=== PATIENT | male | born 1990 | race Two or more races ===

== ENCOUNTER 2021-09-02 09:00 | Emergency (ER) | payer MEDICAID, OTHER ==
[~2021-09-02] VITALS: Ht 172.7 cm; Wt 104.3 kg
[2021-09-02 10:06] LABS: Basophils # (auto) 0 10 ^3/uL (0-0.2); Basophils % (auto) 0.5 % (0.0-2.0); Eosinophils # (auto) 0 10 ^3/uL (0-0.8); Eosinophils % (auto) 0.1 % (0.0-7.0); Hematocrit 42.6 % (41.0-53.0); Hemoglobin 14.7 g/dL (13.5-17.5); Lymphocytes # (auto) 1.5 10 ^3/uL (0.4-5.4); Lymphocytes % (auto) 19.1 % (10.0-50.0); Mean Corpuscular Hgb Conc. 34.6 g/dL (32.0-36.0); Mean Corpuscular Volume 86.6 fL (80.0-100.0); Monocytes # (auto) 0.5 10 ^3/uL (0-1.3); Monocytes % (auto) 6.5 % (0.0-12.0); Neutrophils # (auto) 5.8 10 ^3/uL (1.6-8.6); Neutrophils % (auto) 73.8 % (37.0-80.0); Red Blood Cells 4.91 10^6/uL (4.5-5.90); Red Cell Distribution Width 12.5 % (11.8-14.3); White Blood Cell 7.9 10^3/uL (4.4-10.8)
[2021-09-02 10:22] LABS: Potassium 3.4 mmol/L (3.5-5.1)
[2021-09-02 10:30] LABS: Albumin 4.1 g/dL (3.4-5.0); BUN/Creatinine Ratio 11.5; Bilirubin, Total 0.8 mg/dL (0.2-1.0); Calcium 8.8 mg/dL (8.5-10.1)
[2021-09-02 11:18] LABS: Acetaminophen 6.6 ug/mL (10-30); Salicylate < 1.7 mg/dL (2.8-20.0)
[2021-09-02 11:22] LABS: Alcohol, Urine < 3.0 mg/dL (0-10); Amphetamine Screen, Urine NEGATIVE (NEGATIVE); Barbiturate Scree,Urine NEGATIVE (NEGATIVE); Benzodiazephine Screen, Urine NEGATIVE (NEGATIVE); Cannabinoid Screen, Urine POSITIVE (NEGATIVE); Cocaine Screen, Urine NEGATIVE (NEGATIVE); Opiate Scree,Urine NEGATIVE (NEGATIVE); Phencyclidine Screen, Urine NEGATIVE (NEGATIVE)
[2021-09-02] MEDS ORDERED: PANTOPRAZOLE 40 MG TAB PO ONE (16:15)
[2021-09-02 19:30] VITALS: BP 138/87
== END 2021-09-03 04:04 | disposition home or self-care (01) ==
LOC: EDBD 09:00 → ER 09:00
DX: K29.70 Gastritis, unspecified, without bleeding (principal); E87.6 Hypokalemia; F41.9 Anxiety disorder, unspecified; R74.8 Abnormal levels of other serum enzymes; F12.10 Cannabis abuse, uncomplicated; Z20.822 Contact with and (suspected) exposure to COVID-19
CPT/HCPCS: 36415; 80053; 80307; 80329; 85025

== ENCOUNTER 2024-06-08 21:21 | Emergency (ER) | payer MEDICAID ==
[~2024-06-08] VITALS: Ht 170.2 cm; Wt 88.4 kg
[2024-06-08 21:35] VITALS: BP 125/81; RESP 16; O2SAT 95
[2024-06-08 21:52] VITALS: PULSE 88
--- NOTE | 2024-06-08 21:52 | ED.PDOC ---
History of Present Illness HPI Comments 33-year-old male, history of marijuana use and homelessness, is brought in by ambulance for complaint of shortness a breath and anxiety, today. Per EMS report, patient was at a local crisis center, endorsing of symptoms after he was refused a place to reside upon inquiry, earlier, this evening. He was noted to up and found with all vitals stable and within normal limits, lungs clear, and no endorsement of any significant past medical or surgical history. Upon arrival to ED at time of initial contact, patient reports on feeling anxious, lately, due to recent homelessness after having some on unspecified domestic issues with his previous place of residence at a assisted facility. He denies having any chest pain, cough, congestion, fever, chills, or other associated symptoms or modifiers at this time. Chief Complaint: Shortness of Breath Time Seen by MD: 21:35 Primary Care Provider: NONE Reviewed Notes: Nurses Notes, Flexo Operator Notes, Medications, Allergies Allergies: Coded Allergies: NO KNOWN ALLERGIES (Unverified , 09/02/21) Information Source: Patient, Emergency Med Personnel Mode of Arrival: EMS Past Medical History Past Medical History (Other): ADHD, gastritis Surgical History: Denies all surgeries Family History Family History: Unknown Social History Smoker: Non-Smoker Alcohol: Denies ETOH Use Drugs: Marijuana Lives In: Homeless All Other Systems: Reviewed and Negative (Comprehensive systems review obtained and negative except for what is stated in the HPI.) Physical Exam General Appearance: No Apparent Distress, Obese HEENT: Normal ENT Inspection, Pharynx Normal, TMs Normal Neck: Full Range of Motion, Non-Tender, Normal, Normal Inspection Respiratory: Chest Non-Tender, Lungs Clear, No Accessory Muscle Use, No Respir atory Distress, Normal Breath Sounds Cardiovascular: No Edema, No JVD, No Murmur, No Gallop, Normal Peripheral Pulses, Regular Rate/Rhythm Breast Exam: Deferred Gastrointestinal: No Organomegaly, Non Tender, No Pulsatile Mass, Normal Bowel Sounds, Soft Genitalia: Deferred Pelvic: Deferred Rectal: Deferred Extremities: No calf tenderness, Normal capillary refill, Normal inspection, Normal range of motion, Non-tender, No pedal edema Musculoskeletal : Apperance: Normal Neurologic: Alert, e learning coordinator II-XII nml as Tested, No Motor Deficits, Normal Affect, Normal Mood, No Sensory Deficits Cerebellar Function: Normal Reflexes: Normal Skin: Dry, Normal Color, Warm Lymphatic: No Adenopathy Was a procedure done? Was a procedure done?: No EKG EKG : Pulse Rate (adult): 88 [place]: Normal Cardiac Rhythm: NSR Block: None Hypertrophy: None ST: Normal Differential Dx Considerations may include: Anxiety, panic attack, homelessness, substance abuse, pneumonia, URI, viral syndrome, among other X-Ray, Labs, Meds, VS Vital Signs Date Time Temp Pulse Resp B/P (MAP) Pulse Ox O2 Delivery O2 Flow Rate FiO2 06/08/24 21:52 88 06/08/24 21:35 97.7 79 16 125/81 (96) 95 06/08/24 21:23 88 X-Ray, Labs, Meds, VS Comment PATIENT ELOPED PRIOR TO CHEST X-RAY Time of 1ST Reevaluation: 22:05 Reevaluation 1ST: Unchanged Patient Education/Counseling: Diagnosis, Treatment Family Education/Counseling: No Family Present Additional Information Previous visit documents reviewed: 09/02/2021 The following tests were ordered, and results were reviewed by me: CXR, EKG Additional Information was gathered from interviewing the following independent historians: EMS I reviewed and agreed with the following test results read by other providers: CXR I discussed treatment and results with medical personnel and: patient Departure 1 Departure Time of Disposition: 22:54 Impression: Primary Impression: Anxiety Disposition: LEFT AWOL/ELOPED Condition: Stable Discharged With: Self Critical Care Note Critical Care Time?: No Stability Stability form required: No Heart Score Heart Score: Heart Score Response (Comments) Value History N/A 0 EKG N/A 0 Age N/A 0 Risk Factors N/A 0 Troponin N/A 0 Total 0 I personally scribed for PHUONG MONTELONGO ([email or web address]) on 06/08/24 at 21:52. Electronically submitted by Adiel Jade ([email or web address]). PHUONG MONTELONGO Jun 08, 2024 21:52
[2024-06-08] MEDS: ALPRAZolam 0.5 MG TAB PO ONE (22:50)
--- NOTE | 2024-06-08 22:50 | DVH ---
CHEST RADIOGRAPH Indication: SOB Technique: Single frontal view of the chest was obtained Comparison: None FINDINGS: Lines and Tubes: None Lungs: No focal consolidation. Pleura: No effusion. No pneumothorax. Cardiomediastinal contours: Unremarkable Bones: No acute osseous abnormality. IMPRESSION: 1. No acute cardiopulmonary disease.
--- NOTE | 2024-06-09 03:30 | ECG ---
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
== END 2024-06-08 22:51 | disposition left against medical advice (07) ==
LOC: EDBD 21:21 → ER 21:21
DX: F41.9 Anxiety disorder, unspecified (principal); F12.90 Cannabis use, unspecified, uncomplicated; R06.02 Shortness of breath; Z87.19 Personal history of other diseases of the digestive system; Z59.00 Homelessness unspecified
CPT/HCPCS: 71045; 93005

== ENCOUNTER 2025-03-15 12:16 | Emergency (ER) | payer MEDICAID ==
[~2025-03-15] VITALS: Ht 172.7 cm; Wt 110.0 kg
--- NOTE | 2025-03-15 12:39 | ED.PDOC ---
History of Present Illness HPI Comments 34-year-old male BIBA with prior medical history of ADHD, gastritis and a chief complaint of generalized weakness. Patient reports on having had a sudden onset of generalized weakness which started last night and was exacerbated today after an argument with parents member at home. Stated that the patient was not acting right and called EMS to bring the patient to the ER for checkup. Denies any other symptoms at this time. Denies chills, fever, N/V/D, SOB, CP. No other associated symptoms, modifiers, recent injuries or sick contacts present at this time. Chief Complaint: General Weakness Time Seen by MD: 12:35 Primary Care Provider: NONE Reviewed Notes: Nurses Notes, Medications, Allergies Allergies: Coded Allergies: NO KNOWN ALLERGIES (Unverified , 09/02/21) Information Source: Patient, Emergency Med Personnel Mode of Arrival: EMS Severity: Moderate Timing: Hours Duration: Since onset, Hours Prehospital treatment: None Past Medical History Past Medical History (Other): ADHD, gastritis Surgical History: Denies all surgeries Family History Family History: Reviewed,noncontributory to illness, Unknown Social History Smoker: Non-Smoker Alcohol: Denies ETOH Use Drugs: Marijuana Lives In: Homeless Constitutional: reports: weakness; denies: chills, diaphoresis, fatigue, fever, malaise, sweats, others EENTM: denies: blurred vision, double vision, ear bleeding, ear discharge, ear drainage, ear pain, ear ringing, eye pain, eye redness, hearing loss, mouth pain, mouth swelling, nasal discharge, nose bleeding, nose congestion, nose pain, photophobia, tearing, throat pain, throat swelling, voice changes, others Respiratory: denies: cough, hemoptysis, orthopnea, SOB at rest, shortness of breath, SOB with excertion, stridor, wheezing, others Cardiovascular: denies: chest pain, dizzy spells, diaphoresis, Dyspnea on exertion, edema, irregular heart beat, left arm pain, lightheadedness, palpitations, PND, syncope, others Gastrointestinal: denies: abdomen distended, abdominal pain, blood streaked bowels, constipated, diarrhea, dysphagia, difficulty swallowing, hematemesis, melena, nausea, poor appetite, poor fluid intake, rectal bleeding, rectal pain, vomiting, others Genitourinary: denies: burning, dysuria, flank pain, frequency, hematuria, incontinence, penile discharge, penile sore, pain, testicle pain, testicle swelling, urgency, others Neurological: denies: dizziness, fainting, headache, left sided numbness, left sided weakness, numbness, paresthesia, pre-existing deficit, right sided numbness, right sided weakness, seizure, speech problems, tingling, tremors, weakness, others Musculoskeletal: denies: back pain, gout, joint pain, joint swelling, muscle pain, muscle stiffness, neck pain, others Integumetry: denies: bruises, change in color, change in hair/nails, dryness, laceration, lesions, lumps, rash, wounds, others Allergic/Immunocompromised: denies: Difficulty Healing, Frequent Infections, Hives, Itching, others Hematologic/Lymphatic: denies: anemia, blood clots, easy bleeding, easy bruising, swollen glands, others Endocrine: denies: excessive hunger, excessive sweating, excessive thirst, excessive urination, flushing, intolerance to cold, intolerance to heat, unexplained weight gain, unexplained weight loss, others Psychiatric: denies: anxiety, bipolar disorder, depression, hopeless, panic disorder, schizophrenia, sleepless, suicidal, others All Other Systems: Reviewed and Negative Physical Exam Exam Comments Pressured speech General Appearance: No Apparent Distress, Normal HEENT: Normal ENT Inspection, Pharynx Normal, TMs Normal Neck: Full Range of Motion, Non-Tender, Normal, Normal Inspection Respiratory: Chest Non-Tender, Lungs Clear, No Accessory Muscle Use, No Respiratory Distress, Normal Breath Sounds Cardiovascular: No Edema, No JVD, No Murmur, No Gallop, Normal Peripheral Pulses, Regular Rate/Rhythm Breast Exam: Deferred Gastrointestinal: No Organomegaly, Non Tender, No Pulsatile Mass, Normal Bowel Sounds, Soft Genitalia: Deferred Pelvic: Deferred Rectal: Deferred Extremities: No calf tenderness, Normal capillary refill, Normal inspection, Normal range of motion, Non-tender, No pedal edema Musculoskeletal : Apperance: Normal Neurologic: Alert, alpine patroller II-XII nml as Tested, No Motor Deficits, Normal Affect, Normal Mood, No Sensory Deficits Cerebellar Function: Normal Reflexes: Normal Skin: Dry, Normal Color, Warm Lymphatic: No Adenopathy Was a procedure done? Was a procedure done?: No Differential Dx Considerations may include: Psychosis, viral syndrome, schizophrenia, polysubstance abuse X-Ray, Labs, Meds, VS Vital Signs Date Time Temp Pulse Resp B/P (MAP) Pulse Ox O2 Delivery O2 Flow Rate FiO2 03/16/25 04:55 97.8 63 16 131/93 (106) 100 97.8 03/16/25 04:00 Room Air* 0 21 03/15/25 18:40 98.3 88 16 143/80 (101) 97 98.3 03/15/25 12:24 98.6 96 16 138/81 100 98.6 Lab Test 03/15/25 17:49 03/15/25 12:35 Range/Units Urine Color Colorless Yellow Urine Clarity Clear Clear Urine pH 6.5 5.0-9.0 Urine Specific [place] 1.005 1.001-1.035 Urine Protein Negative Negative Urine Ketones Negative Negative Urine Blood Negative Negative /uL Urine Nitrite Negative Negative Urine Bilirubin Negative Negative Urine Urobilinogen Normal Negative mg/dL Urine Leukocyte Esterase Negative Negative /uL Urine RBC 1 0 - 3 /hpf Urine Microscopic WBC < 1 0-3 /HPF Urine Squamous Epithelial Cells Few <5 /hpf Urine Bacteria None seen None Seen /hpf Urine Glucose Normal Normal mg/dL Urine Opiates Screen Neg NEGATIVE Urine Fentanyl Screen Neg NEGATIVE Urine Barbiturates Screen Neg NEGATIVE Urine Phencyclidine Screen Neg NEGATIVE Urine Amphetamines Screen Neg NEGATIVE Urine Benzodiazepines Screen Neg NEGATIVE Urine Cocaine Screen Neg NEGATIVE Urine Cannabinoids Screen Pos NEGATIVE White Blood Count 9.3 4.4-10.8 10^3/uL Red Blood Count 4.76 4.5-5.90 10^6/uL Hemoglobin 14.1 13.5-17.5 g/dL Hematocrit 41.9 41.0-53.0 % Mean Corpuscular Volume 88.0 80.0-100.0 fL Mean Corpuscular Hemoglobin 29.7 28.0-32.0 pg Mean Corpuscular Hemoglobin Concent 33.8 32.0-36.0 g/dL Red Cell Distribution Width 13.0 11.8-14.3 % Platelet Count 251 140-450 10^3/uL Mean Platelet Volume 10.8 6.9-10.8 fL Neutrophils (%) (Auto) 63.7 37.0-80.0 % Lymphocytes (%) (Auto) 30.3 10.0-50.0 % Monocytes (%) (Auto) 5.0 0.0-12.0 % Eosinophils (%) (Auto) 0.6 0.0-7.0 % Basophils (%) (Auto) 0.4 0.0-2.0 % Neutrophils # (Auto) 5.9 1.6-8.6 10 ^3/uL Lymphocytes # (Auto) 2.8 0.4-5.4 10 ^3/uL Monocytes # (Auto) 0.5 0-1.3 10 ^3/uL Eosinophils # (Auto) 0.1 0-0.8 10 ^3/uL Basophils # (Auto) 0 0-0.2 10 ^3/uL Nucleated Red Blood Cells 0.1 % Sodium Level 141 136-145 mmol/L Potassium Level 3.8 3.5-5.1 mmol/L Chloride Level 104 98-107 mmol/L Carbon Dioxide Level 26 20-31 mmol/L Anion Gap 11 5-15 Blood Urea Nitrogen 8 L 9-23 mg/dL Creatinine 1.04 0.700-1.30 mg/dL Glomerular Filtration Rate Calc 96 >90 mL/min BUN/Creatinine Ratio 7.7 L 10.0-20.0 Serum Glucose 139 H 74-106 mg/dL Calcium Level 9.5 8.7-10.4 mg/dL Salicylates Level < 3.0 -30 mg/dL Acetaminophen Level < 2.0 L 10.0-20.0 UG/ML Plasma/Serum Blood Alcohol < 3.0 <10 mg/dL Time of 1ST Reevaluation: 13:05 Reevaluation 1ST: Unchanged Patient Education/Counseling: Diagnosis, Treatment, Prognosis Family Education/Counseling: No Family Present SEPSIS Sepsis Screen Date sepsis recognized/suspect: Mar 15, 2025 Time Sepsis recognized/suspect: 1220 Recent Procedure: No On Antibiotic Therapy: No Respiratory Rate >20: No Heart Rate >90: No Temp<36 C (96.8 F) or >38.3 C: No SBP <90 or MAP <65 mmHG: No New Acute Mental Status Change: No Is the patient on CPAP, BIPAP,: No Physician Orders Soc Telemed Psych Consult (03/15/25 12:27) Vital Signs Date Time Temp Pulse Resp B/P (MAP) Pulse Ox O2 Delivery O2 Flow Rate FiO2 03/16/25 04:55 97.8 63 16 131/93 (106) 100 97.8 12/11/25 04:00 Room Air* 0 21 03/15/25 18:40 98.3 88 16 143/80 (101) 97 98.3 03/15/25 12:24 98.6 96 16 138/81 100 98.6 Laboratory Tests Test 03/15/25 12:35 White Blood Count 9.3 10^3/uL (4.4-10.8) Departure 1 Departure Time of Disposition: 07:28 (Patient is medically cleared and waiting to be evaluated by psychiatry) Impression: Primary Impression: Psychosis Disposition: 30 STILL A PATIENT Condition: Fair Critical Care Note Critical Care Time?: No Stability Stability form required: No I personally scribed for WILLI CHAVEZ MD ([email or web address]) on 03/15/25 at 12:39. Electronically submitted by Luis Huynh ([email or web address]). WILLI CHAVEZ MD Mar 15, 2025 12:39
[2025-03-15 13:00] LABS: Hematocrit 41.9 % (41.0-53.0); Hemoglobin 14.1 g/dL (13.5-17.5); Mean Corpuscular Hemoglobin 29.7 pg (28.0-32.0); Mean Corpuscular Volume 88.0 fL (80.0-100.0); Nucleated Red Blood Cells % 0.1 %
[2025-03-15 13:02] LABS: Chloride 104 mmol/L (98-107); Potassium 3.8 mmol/L (3.5-5.1); Sodium 141 mmol/L (136-145)
[2025-03-15 13:03] LABS: Anion Gap 11 (5-15); Calcium 9.5 mg/dL (8.7-10.4); Carbon Dioxide 26 mmol/L (20-31)
[2025-03-15 13:08] LABS: BUN/Creatinine Ratio 7.7 (10.0-20.0)
[2025-03-15 13:10] LABS: Blood Urea Nitrogen 8 mg/dL (9-23)
[2025-03-15 13:11] LABS: Acetaminophen < 2.0 UG/ML (10.0-20.0); Salicylate < 3.0 mg/dL (-30)
[2025-03-15 13:19] LABS: Glucose 139 mg/dL (74-106)
[2025-03-15 20:20] LABS: Urine Protein, UAD Negative (Negative)
[2025-03-15 20:30] LABS: Cannabinoid Screen, Urine Pos (NEGATIVE)
[2025-03-15 21:07] LABS: Amphetamine Screen, Urine Neg (NEGATIVE); Barbiturate Scree,Urine Neg (NEGATIVE); Benzodiazephine Screen, Urine Neg (NEGATIVE); Cocaine Screen, Urine Neg (NEGATIVE); Opiate Scree,Urine Neg (NEGATIVE); Phencyclidine Screen, Urine Neg (NEGATIVE)
--- NOTE | 2025-03-16 20:49 | DVHINCON2 ---
Date of Service if different f: Mar 16, 2025 Consultation ([facility]) Labs Laboratory Tests Test 03/15/25 12:35 03/15/25 17:49 White Blood Count 9.3 10^3/uL (4.4-10.8) Red Blood Count 4.76 10^6/uL (4.5-5.90) Hemoglobin 14.1 g/dL (13.5-17.5) Hematocrit 41.9 % (41.0-53.0) Mean Corpuscular Volume 88.0 fL (80.0-100.0) Mean Corpuscular Hemoglobin 29.7 pg (28.0-32.0) Mean Corpuscular Hemoglobin Concent 33.8 g/dL (32.0-36.0) Red Cell Distribution Width 13.0 % (11.8-14.3) Platelet Count 251 10^3/uL (140-450) Mean Platelet Volume 10.8 fL (6.9-10.8) Neutrophils (%) (Auto) 63.7 % (37.0-80.0) Lymphocytes (%) (Auto) 30.3 % (10.0-50.0) Monocytes (%) (Auto) 5.0 % (0.0-12.0) Eosinophils (%) (Auto) 0.6 % (0.0-7.0) Basophils (%) (Auto) 0.4 % (0.0-2.0) Neutrophils # (Auto) 5.9 10 ^3/uL (1.6-8.6) Lymphocytes # (Auto) 2.8 10 ^3/uL (0.4-5.4) Monocytes # (Auto) 0.5 10 ^3/uL (0-1.3) Eosinophils # (Auto) 0.1 10 ^3/uL (0-0.8) Basophils # (Auto) 0 10 ^3/uL (0-0.2) Nucleated Red Blood Cells 0.1 % Sodium Level 141 mmol/L (136-145) Potassium Level 3.8 mmol/L (3.5-5.1) Chloride Level 104 mmol/L (98-107) Carbon Dioxide Level 26 mmol/L (20-31) Anion Gap 11 (5-15) Blood Urea Nitrogen 8 mg/dL (9-23) Creatinine 1.04 mg/dL (0.700-1.30) Glomerular Filtration Rate Calc 96 mL/min (>90) BUN/Creatinine Ratio 7.7 (10.0-20.0) Serum Glucose 139 mg/dL (74-106) Calcium Level 9.5 mg/dL (8.7-10.4) Salicylates Level < 3.0 mg/dL (-30) Acetaminophen Level < 2.0 UG/ML (10.0-20.0) Plasma/Serum Blood Alcohol < 3.0 mg/dL (<10) Urine Color Colorless (Yellow) Urine Clarity Clear (Clear) Urine pH 6.5 (5.0-9.0) Urine Specific [place] 1.005 (1.001-1.035) Urine Protein Negative (Negative) Urine Ketones Negative (Negative) Urine Blood Negative /uL (Negative) Urine Nitrite Negative (Negative) Urine Bilirubin Negative (Negative) Urine Urobilinogen Normal mg/dL (Negative) Urine Leukocyte Esterase Negative /uL (Negative) Urine RBC 1 /hpf (0 - 3) Urine Microscopic WBC < 1 /HPF (0-3) Urine Squamous Epithelial Cells Few /hpf (<5) Urine Bacteria None seen /hpf (None Seen) Urine Glucose Normal mg/dL (Normal) Urine Opiates Screen Neg (NEGATIVE) Urine Fentanyl Screen Neg (NEGATIVE) Urine Barbiturates Screen Neg (NEGATIVE) Urine Phencyclidine Screen Neg (NEGATIVE) Urine Amphetamines Screen Neg (NEGATIVE) Urine Benzodiazepines Screen Neg (NEGATIVE) Urine Cocaine Screen Neg (NEGATIVE) Urine Cannabinoids Screen Pos (NEGATIVE) Appetite: Good Appearance: Stated age, Groomed Psychomotor activity: WNL Behavioral: [place] Eye contact: Limited Speech: WNL Affect: Appropriate Mood: Neutral Thought processes: [place] Thought content: WNL Suicidal ideations: Absent Homicidal ideations: Absent Orientation: Person, Place, Time, Confused Memory intact: Recent Intellect: Above average Abstractability: Marginal Concentration: Adequate Attention: Adequate Judgement: WNL Insight: Marginal Vitals Vital Signs Date Time Temp Pulse Resp B/P (MAP) Pulse Ox O2 Delivery O2 Flow Rate FiO2 03/16/25 14:24 97.9 86 17 137/90 (106) 97 97.9 03/16/25 07:34 Room Air 03/16/25 04:00 0 21 History of Present Illness Reason for Consult : psychiatric evaluation and disposition HPI : This is a 34-year-old male with history of ADHD, present here reporting weakness after argument with parents. Patient is evaluated via telepsychiatry. He reports argument with parents were he was cursing and dad called the extension course coordinator. he does not specify what they argued about. His thought process is circumstantial. He feels stressed and wants to leave family to return to [place] to do his own thing. He reports [place]. He reports a lot relationship stressor and not getting along with women in many, previous relationships. He feels frustrated by this. He reports feeling depressed and anxious but unable to provide details about his symptoms. He has trouble staying on topic or focusing. He does not clearly state why he came to ED. He denies suicidal/homicidal ideation. He denies auditory/visual hallucinations or paranoid thoughts. he does not appear to respond to unseen stimuli. He does report having poor sleep, only 2-3 hours per night. he reports good appetite. Past Psychiatric History : He reports prior psych admission but unable to clearly provide details. He reports hx of ADHD and special education classes u ntil 7th grade. he denies prior suicide attempts. He denies current outpatient mental health services. he denies any prescribed psychotropic medications Past Medical History : He denies Social History : He lives with family currently. He reports being single and has a daughter he has not seen in 5 years. He receives [employer] and his own payee. He reports medical marijuana usually daily to treat his ADHD, he denies other substance use. No known family history. He dropped out of school in 7th grade. Diagnosis: Unspecified mood disorder, ADHD Plan: Patient denies suicidal/homicidal ideation. Contact family for collateral. He does not meet LPS hold criteria. May discharge home after medical clearance. recommend social work msw assistance for housing if unable to return home. And outpatient services referrals. ERICA LOMBARDI DNP Mar 16, 2025 20:48
[2025-03-16 23:55] VITALS: BP 143/78; PULSE 91; RESP 18; TEMP 98.2; O2SAT 96
== END 2025-03-17 00:12 | disposition home or self-care (01) ==
LOC: EDBD 12:16 → ER 12:16
DX: F29 Unspecified psychosis not due to a substance or known physiological condition (principal); F12.90 Cannabis use, unspecified, uncomplicated; Z87.19 Personal history of other diseases of the digestive system; Z59.00 Homelessness unspecified
CPT/HCPCS: 36415; 80048; 80307; 80320; 80329; 81001; 85025